=== PATIENT | female | born 1970 | race Caucasian/White ===

== ENCOUNTER → 2024-04-02 18:46 | Outpatient (REF) | payer BC, SELFPAY | LOC: WDC 18:46 | PROVIDERS: ATTENDING PHYSICIAN Family Medicine | DX: Z12.31 Encounter for screening mammogram for malignant neoplasm of breast (principal) | CPT/HCPCS: 77063; 77067 ==

== ENCOUNTER → 2025-07-11 12:52 | Outpatient (REF) | payer BC, SELFPAY | LOC: WDC 12:52 | PROVIDERS: ATTENDING PHYSICIAN Physician Assistant Medical | DX: Z12.31 Encounter for screening mammogram for malignant neoplasm of breast (principal) | CPT/HCPCS: 77063; 77067 ==